=== PATIENT | female | born 1960 | race Caucasian/White ===

== ENCOUNTER 2016-08-06 11:02 | Observation (INO) | payer OTHER ==
[2016-07-25 13:50] VITALS: BMI 21.0
--- NOTE | 2016-07-25 14:19 | PAT Medication Instructions ---
Service Date Jul 25, 2016. Current Home Medication List Biotin (Biotin 5000), 2 CAP PO QPM Buspirone Hcl (Buspirone Hcl), 1 TAB PO Q2D Gabapentin (Neurontin), 300 MG PO TID Meloxicam (Meloxicam), 15 MG PO QAM Multivitamin (Multivitamin), 1 TAB PO DAILY Multivitamin (Multivitamin), 1 TAB PO QPM Sennosides-Docusate Sodium (Stool Softener), 1 TAB PO UD PRN for Constipation Tramadol (Ultram), 1 TAB PO TID PRN for Pain Tramadol (Ultram), 100 MG PO HS PRN for Pain Venlafaxine Hcl (Effexor), 37.5 MG PO QPM Medication Instructions For Your Scheduled Surgery - Check with surgeon for instructions: Meloxicam (Meloxicam), 15 MG PO QAM - Hold the following medications the morning of surgery: Sennosides-Docusate Sodium (Stool Softener), 1 TAB PO UD PRN for Constipation Multivitamin (Multivitamin), 1 TAB PO DAILY - Take the following medications the morning of surgery with a sip of water: Gabapentin (Neurontin), 300 MG PO TID Buspirone Hcl (Buspirone Hcl), 1 TAB PO Q2D Tramadol (Ultram), 1 TAB PO TID PRN for Pain (okay to take up to 4 hours prior to surgery if needed) - Take the following medications as scheduled the night before surgery: Venlafaxine Hcl (Effexor), 37.5 MG PO QPM Sennosides-Docusate Sodium (Stool Softener), 1 TAB PO UD PRN for Constipation Multivitamin (Multivitamin), 1 TAB PO QPM Gabapentin (Neurontin), 300 MG PO TID Biotin (Biotin 5000), 2 CAP PO QPM Tramadol (Ultram), 100 MG PO HS PRN for Pain If you have any questions please call us at [phone] (Marta Mcdaniel PA-C) or [phone] or [phone]
--- NOTE | 2016-07-25 14:59 | DIAGNOSTIC IMAGING REPORT ---
CHEST PREADMISSION(PA/LAT) CLINICAL HISTORY: Preoperative chest COMPARISON STUDY: No previous studies for comparison. FINDINGS: The cardiac and mediastinal contours are normal. There is no evidence of focal pulmonary consolidation. There is no evidence of failure. No pleural effusions are visualized.[ IMPRESSION: No active disease in the chest. Electronically signed by: Galen Ledesma M.D. 07/25/2016 2:57 PM Dictated Date/Time: 07/25/2016 2:57 PM
[2016-07-25 15:25] LABS: BASO % 0.4 %; BASO ABS # 0.02 K/uL (0-0.2); COMPLETE YES; EOS % 0.9 %; HEMATOCRIT 42.3 % (37-47); IG% 0.2 %; LYMPH % 40.5 %; LYMPH ABS # 2.22 K/uL (1.2-3.4); MEAN CELL VOLUME 96.6 fL (80-100); MEAN CORPUSCULAR HEMOGLOBIN 32.4 pg (25-34); MEAN CORPUSCULAR HGB CONC 33.6 g/dl (32-36); MEAN PLATELET VOLUME 9.7 fL (7.4-10.4); MONO % 6.9 %; NEUT % 51.1 %; PLATELET COUNT 260 K/uL (130-400); RED BLOOD COUNT 4.38 M/uL (4.2-5.4); WHITE BLOOD COUNT 5.48 K/uL (4.8-10.8)
[2016-07-25 15:36] LABS: URINE APPEARANCE CLEAR (CLEAR); URINE BILIRUBIN NEG (NEG); URINE COLOR YELLOW; URINE EPITHELIAL CELL AUTO 0-5 /lpf (0-5); URINE NITRITE NEG (NEG); URINE SPECIFIC GRAVITY 1.005 (1.000-1.030); UROBILINOGEN NEG (NEG)
[2016-07-25 15:37] LABS: PROTHROMBIN TIME (PATIENT) 10.3 SECONDS (9.0-12.0)
[2016-07-25 15:43] LABS: CALCIUM 9.6 mg/dl (8.5-10.1); CREATININE 0.75 mg/dl (0.60-1.20); POTASSIUM 4.5 mmol/L (3.5-5.1)
[2016-07-25 15:46] LABS: MANUAL MICROSCOPIC REQUIRED? NO; REVIEW REQ? NO
--- NOTE | 2016-08-03 13:55 | HISTORY & PHYSICAL EXAMINATION ---
DATE OF ADMISSION: Saturday surgery at [facility]. PROCEDURE: Lumbar spine discectomy L5-S1. HISTORY OF PRESENT ILLNESS: Julito is a delightful young lady. She has back and lower extremity difficulty, paresthesias, numbness and tingling. Straight leg raising. We failed to get her better with conservative measures. She has a posterior disc protrusion L5-S1 with impingement of the S1 nerve root on the right. She is here for surgical intervention. PAST MEDICAL HISTORY: Negative for heart disease, diabetes, carcinoma, asthma, wheezing, anemias. Positive for anxiety. PAST SURGICAL HISTORY: Tubal ligation, wisdom teeth. MEDICATIONS: Meloxicam, Neurontin, tramadol, multivitamin. ALLERGIES: Negative. SOCIAL HISTORY: Nonsmoker, non-ETOH user. MEDICATIONS: Include multivitamin, biotin, tramadol, meloxicam as stated and Prilosec. Also takes BuSpar. REVIEW OF SYSTEMS: She has no fever, sweats, chills. No feeling of malaise, it is all mechanical back and lower extremity difficulty. Denies any chest pain, palpitations. Denies asthma, wheezing, shortness of breath. Denies nausea, vomiting, urgency, frequency, dysuria. She admits to her back and lower extremity difficulty. OBJECTIVE: GENERAL: She is alert, oriented. She is petite. VITAL SIGNS: Blood pressure 130/80, pulse of 80, respiratory rate 16, temperature 97.4. HEENT: Pupils react to light and accommodation. Ear, nose and throat clear. CARDIAC: Normal S1, S2; no S3. LUNGS: Clear to auscultation. ABDOMEN: Soft and nontender. MUSCULOSKELETAL: She has pain with percussion of lumbar spine. Pain with straight leg raising. She has some numbness and tingling and decreased Achilles reflex. IMPRESSION: Disc herniation, lumbar spine L5-S1. DISPOSITION: Includes lumbar spine discectomy L5-S1.
[2016-08-06] VITALS (8 sets, daily range): BP systolic 130–160; BP diastolic 82–100; PULSE 59–80; TEMP 36.5–36.9; O2SAT 96–100; Ht 154.9 cm; Wt 51.6 kg
[~2016-08-06] VITALS: Ht 154.9 cm; Wt 51.6 kg
[~2016-08-06 11:02] MED LIST: BIOTCAP2 PO; BUSP-8 PO; CEFAZOLIN 2000 MG/60 ML D5W 60 ML IV SCH; EFF/375 PO; GABA-113 PO; LACTATED RINGER'S 500 ML IV SCH; MELO15TA4 PO; MULT-506 PO; SENNTAB23 PO; SODIUM CHLORIDE 0.9% 1000ML 1,000 ML IV SCH; TRAM-10 PO
[2016-08-06] MEDS ORDERED: FENTANYL CITRATE INJ 50 MCG/1 ML 2 ML VIAL ONE (13:42)
[2016-08-06] MEDS ORDERED: GLYCOPYRROLATE INJ 0.2 MG/ML VIAL ONE (13:42)
[2016-08-06] MEDS ORDERED: NEOSTIGMINE METHYLSULFATE 5 MG/5 ML SYR ONE (13:42)
[2016-08-06] MEDS ORDERED: LIDOCAINE HCL 2% 2 ML VIAL (20MG/ML) ONE (13:42)
[2016-08-06] MEDS ORDERED: SUCCINYLCHOLINE CHLORIDE 20 MG/ML 10 ML VIAL IV ONE (13:42)
[2016-08-06] MEDS ORDERED: DEXAMETHASONE SOD INJ 4 MG/ML VIAL ONE (13:42)
[2016-08-06] MEDS ORDERED: PHENYLEPHRINE HCL INJ 10 MG/ML VIAL ONE (13:42)
[2016-08-06] MEDS ORDERED: ROCURONIUM BROMIDE 10 MG/ML 5 ML VIAL ONE (13:42)
[2016-08-06] MEDS ORDERED: EpHEDrine SULFATE INJ 50 MG/ML AMP ONE (13:42)
[2016-08-06] MEDS ORDERED: ONDANSETRON INJ 2 MG/ML 2 ML VIAL ONE ×2 (13:42→15:29)
[2016-08-06] MEDS ORDERED: MIDAZOLAM HCL 1 MG/ML 2ML VIAL ONE (13:42)
[2016-08-06] MEDS ORDERED: PROPOFOL IV EMULSION 10 MG/ML 20 ML VIAL IV ONE (13:42)
[2016-08-06] MEDS ORDERED: ATROPINE SULFATE 0.1 MG/ML 5ML SYR IV PRN (14:00)
[2016-08-06] MEDS ORDERED: LABETALOL HCL IV 5 MG/ML 20ML IV PRN (14:00)
[2016-08-06] MEDS ORDERED: HYDROmorphone INJ 2 MG/ML SYR/VIAL IV PRN ×2 (14:00→16:15)
[2016-08-06] MEDS ORDERED: MEPERIDINE HCL 25 MG/ML CARP IV PRN (14:00)
[2016-08-06] MEDS ORDERED: EpHEDrine SULFATE INJ 50 MG/ML AMP IV PRN (14:00)
[2016-08-06] MEDS ORDERED: PHENYLEPHRINE 100MCG/ML 5ML SYR IV PRN (14:00)
[2016-08-06] MEDS ORDERED: FLUMAZENIL 0.1 MG/1 ML 10 ML VIAL IV PRN (14:00)
[2016-08-06] MEDS ORDERED: NALOXONE HCL 0.4 MG/1 ML VIAL/CARP IV PRN (14:00)
[2016-08-06] MEDS ORDERED: ONDANSETRON INJ 2 MG/ML 2 ML VIAL IV PRN ×2 (14:00→16:15)
--- NOTE | 2016-08-06 14:39 | History & Physical Bridge Note ---
H&P Re-Evaluation Bridge Note: I have examined the patient, reviewed the History & Physical and in the interval since the performance of the History & Physical I have noted the following changes of clinical significance: No changes noted
[2016-08-06] MEDS ORDERED: VANCOMYCIN HCL 1000MG/20ML VIAL TOP ONE (15:43)
[2016-08-06] MEDS ORDERED: THROMBIN FOR SOLN 20000 UNIT KIT TOP ONE (15:43)
[2016-08-06] MEDS ORDERED: GELATIN SPONGE SZ 100 TOP ONE (15:43)
[2016-08-06] MEDS ORDERED: BUPIVACAINE/EPINEPHRINE 0.5% MPF 1:200,000 30 ML VIAL INJ ONE (15:43)
[2016-08-06] MEDS ORDERED: BACITRACIN 50000 UNIT VIAL IR ONE (15:54)
[2016-08-06] MEDS ORDERED: SODIUM CHLORIDE 0.9% 1000ML 1,000 ML IV SCH (16:08)
--- NOTE | 2016-08-06 16:13 | [facility] Post Operative Brief Note ---
Immediate Operative Summary Operative Date Aug 06, 2016. Pre-Operative Diagnosis Disc herniation, lumbar spine L5-S1 Post-Operative Diagnosis Same as preop Procedure(s) Performed L5-S1 Discectomy Surgeon Dr. Galvan Shipyard Helper Surgeon(s) Rudolph Camarillo PA-C Estimated Blood Loss 20 ml Findings disc herniation Specimens None per Surgeon Complication(s) None Disposition Recovery Room / PACU
[2016-08-06] MEDS ORDERED: LORAZEPAM INJ 1 MG in SYRINGE 0 ML IV PRN (16:15)
[2016-08-06] MEDS ORDERED: ACETAMINOPHEN 325 MG TAB PO PRN (16:15)
[2016-08-06] MEDS ORDERED: MAGNESIUM HYDROXIDE SUSP 30 ML UDC PO PRN (16:15)
[2016-08-06] MEDS ORDERED: METOCLOPRAMIDE HCL INJ 5 MG/ML 2 ML VIAL IV PRN (16:15)
[2016-08-06] MEDS ORDERED: OXYCODONE/ACETAMINOPHEN 5-325 TAB PO PRN (16:15)
[2016-08-06] MEDS ORDERED: LORAZEPAM 1 MG TAB PO PRN (16:15)
[2016-08-06] MEDS ORDERED: HYDROmorphone INJ 1 MG/ML SYR IV PRN (16:15)
[2016-08-06] MEDS ORDERED: PROMETHAZINE HCL INJ 12.5 MG in SODIUM CHLORIDE 0.9% 50ML 50 ML IV PRN (16:15)
[2016-08-06] MEDS: FENTANYL CITRATE INJ 50 MCG/1 ML 2 ML VIAL IV PRN ×4 (16:23→16:40)
--- NOTE | 2016-08-06 16:54 | Anesthesiology Progress Note ---
Anesthesia Post Op Note Date & Time Aug 06, 2016 at 16:55 Vital Signs Pain Intensity: 3 Vital Signs Past 12 Hours Date Time Temp Pulse Resp B/P Pulse Ox O2 Delivery O2 Flow Rate FiO2 08/06/16 16:49 81 18 08/06/16 16:49 84 18 97 08/06/16 16:48 135/78 08/06/16 16:44 68 15 08/06/16 16:44 65 15 99 08/06/16 16:43 66 14 08/06/16 16:43 67 14 135/74 99 08/06/16 16:38 76 19 08/06/16 16:38 76 19 128/80 98 08/06/16 16:33 73 18 137/77 98 08/06/16 16:33 75 18 08/06/16 16:28 66 13 141/83 98 08/06/16 16:28 66 13 08/06/16 16:23 66 14 146/94 97 08/06/16 16:23 66 14 08/06/16 16:18 79 14 151/83 100 08/06/16 16:18 77 14 08/06/16 16:13 36.0 86 12 158/86 96 Mask 10 08/06/16 16:13 78 19 145/86 98 08/06/16 16:13 78 19 08/06/16 11:23 36.9 64 16 160/100 98 Room Air Notes Mental Status: alert / awake / arousable, participated in evaluation Pt Amnestic to Procedure: Yes Nausea / Vomiting: adequately controlled Pain: adequately controlled Airway Patency, RR, SpO2: stable & adequate BP & HR: stable & adequate Hydration State: stable & adequate Anesthetic Complications: no major complications apparent
--- NOTE | 2016-08-06 17:07 | DIAGNOSTIC IMAGING REPORT ---
Intraoperative lumbar spine single view CLINICAL HISTORY: L5-S1 DISCECTOMY COMPARISON STUDY: No previous studies for comparison. FINDINGS: 4 seconds of fluoroscopic time was utilized. A metallic density projected posterior elements at the S1 level. A single fluoroscopic spot image was acquired. IMPRESSION: Intraoperative localization spot image demonstrating a metallic needle projected over posterior elements at the S1 level Electronically signed by: Galen Ledesma M.D. 08/06/2016 5:05 PM Dictated Date/Time: 08/06/2016 5:04 PM
[2016-08-06] MEDS: OXYCODONE/ACETAMINOPHEN 5-325 TAB PO PRN ×2 (18:07→21:36)
[2016-08-06] MEDS: KETOROLAC TROMETHAMINE 30 MG/ML VIAL IV. SCH (18:51)
[2016-08-06] MEDS ORDERED: BIOTIN PO SCH (21:00)
[2016-08-06] MEDS ORDERED: VENLAFAXINE HCL 37.5 MG TAB PO SCH (21:00)
[2016-08-06] MEDS: DEXAMETHASONE INJ 10 MG in SYRINGE 0 ML IV SCH (21:34)
[2016-08-06] MEDS: GABAPENTIN 300 MG CAP PO SCH (21:34)
[2016-08-06] MEDS ORDERED: NURSING DECISION MEDICATION ORDER SCH (21:45)
[2016-08-06] MEDS ORDERED: COUGH DROP (SUGAR FREE) LOZ 24 LOZ/1 BOX ONE (21:47)
[2016-08-06] MEDS ORDERED: COUGH DROP (SUGAR FREE) LOZ 24 LOZ/1 BOX PO PRN (22:15)
[2016-08-06] MEDS: CEFAZOLIN IV 1,000 MG in DEXTROSE 5% 50ML 50 ML IV SCH (22:48)
[2016-08-06] MEDS ORDERED: IV FLUIDS COMPLETED PRN (23:45)
[2016-08-07] MEDS: KETOROLAC TROMETHAMINE 30 MG/ML VIAL IV. SCH ×3 (00:14→12:17)
[2016-08-07 02:37] VITALS: BP 120/71; PULSE 62; TEMP 36.6; O2SAT 98
[2016-08-07] MEDS: DEXAMETHASONE INJ 10 MG in SYRINGE 0 ML IV SCH (05:44)
[2016-08-07] MEDS ORDERED: BISACODYL 10 MG SUPP PR PRN (06:00)
[2016-08-07] MEDS ORDERED: BISACODYL 5 MG TABEC PO PRN (06:00)
[2016-08-07] MEDS: CEFAZOLIN IV 1,000 MG in DEXTROSE 5% 50ML 50 ML IV SCH (06:32)
[2016-08-07] MEDS ORDERED: NURSING DECISION MEDICATION ORDER SCH (06:45)
--- NOTE | 2016-08-07 07:08 | OPERATIVE REPORT ---
DATE OF OPERATION: 08/06/2016 PREOPERATIVE DIAGNOSIS: Disc herniation, lumbar spine. POSTOPERATIVE DIAGNOSIS: Same. PROCEDURE: Lumbar spine discectomy L4-L5. SURGEON: Ishan Galvan DO COMPUTING SYSTEMS MECHANIC: Rudolph Camarillo PA-C ESTIMATED BLOOD LOSS: 20 mL. COMPLICATIONS: Zero. DESCRIPTION OF PROCEDURE: The patient was taken to the operating room and general intubated anesthetic provided. The patient was placed prone, prepped and draped sterile. We used C-arm guidance, we came right down on the L5-S1 interspace, dissecting the soft tissue, the skin and the fascia. We did a mini laminotomy up and below, foraminotomy, took out a small piece of ligamentum flavum, retracted the dura and nerve root medial. Did a discectomy with various sized pituitary rongeurs, first incising this was 15 scalpel blade. We irrigated thoroughly, placed a small fat graft over the dural structures. Closed fascia to fascia over Hemovac drain with 1 Vicryl suture, 2-0 and 3-0 nylon on the skin. Sterile dressing applied. The patient returned to PACU stable. No apparent complications. I attest to the content of the Intraoperative Record and any orders documented therein. Any exceptio ns are noted below.
[2016-08-07 07:15] VITALS: BP 153/97; PULSE 57; TEMP 36.9; O2SAT 99
--- NOTE | 2016-08-07 07:37 | Discharge Instructions ---
Discharge Instructions Admission Reason for Admission: Lumbar Iv Disc Displacement Discharge Discharge Diagnosis / Problem: lumbar surgery Discharge Goals Goal(s): Improve function Activity Recommendations Activity Limitations: as noted below Lifting Limitations: until after follow-up appointment Exercise/Sports Limitations: until after follow-up appointment May Resume Sexual Activity: after follow-up appointment Shower/Bathe: keep incision dry Driving or Machine Use: home, rest, recover ! . Current Hospital Diet Patient's current hospital diet: Regular Diet Discharge Diet Recommended Diet: Regular Diet Fluid Restriction: None Procedures Procedures Performed: L5-S1 Discectomy Pending Studies Studies pending at discharge: no Medical Emergencies . Who to Call and When: Medical Emergencies: If at any time you feel your situation is an emergency, please call 911 immediately. . Non-Emergent Contact Non-Emergency issues call your: Surgeon Call Non-Emergent contact if: temperature is above 101.5, your pain is concerning you, wound has increased drainage . "Provider Documentation" section prepared by Ishan Galvan. VTE Core Measure Inpt VTE Proph given/why not?: Treatment not indicated
--- NOTE | 2016-08-07 08:08 | Anesthesiology Progress Note ---
Anesthesia Post Op Note Date & Time Aug 07, 2016 at 08:07 Vital Signs Vital Signs Past 12 Hours Date Time Temp Pulse Resp B/P Pulse Ox O2 Delivery O2 Flow Rate FiO2 08/07/16 07:15 36.9 57 16 153/97 99 Room Air 08/07/16 07:15 Room Air 08/07/16 02:37 36.6 62 18 120/71 98 Room Air 08/07/16 00:20 Room Air 08/06/16 23:34 36.8 61 18 133/83 97 Room Air 08/06/16 20:08 36.8 62 17 160/82 96 Room Air Notes Mental Status: alert / awake / arousable, participated in evaluation Pt Amnestic to Procedure: Yes Nausea / Vomiting: adequately controlled Pain: adequately controlled Airway Patency, RR, SpO2: stable & adequate BP & HR: stable & adequate Hydration State: stable & adequate Anesthetic Complications: no major complications apparent
--- NOTE | 2016-08-07 08:17 | PROGRESS NOTE ---
DATE: 08/07/2016 SUBJECTIVE: Moderate complaints of pain. No chest pain, shortness of breath. OBJECTIVE: Vital signs stable. 36.0 temperature. Laboratory work not indicated. ASSESSMENT: Status post discectomy lumbar spine. DISPOSITION: We will get her up and ambulatory today. Dressing change, pull her Hemovac drain. We will discharge her home later on today in improved stable condition. She has a follow-up appointment in 10 days. Careful with bending, stooping, lifting, no driving. She is to wear her back brace if comfortable when she is up and ambulatory. Essentially home rest and recover, call if any problems arise.
[2016-08-07] MEDS: GABAPENTIN 300 MG CAP PO SCH (08:40)
[2016-08-07] MEDS: OXYCODONE/ACETAMINOPHEN 5-325 TAB PO PRN (08:43)
[2016-08-07] MEDS ORDERED: POLYETHYLENE (MIRALAX) 17 GM PACK PO SCH (09:00)
[2016-08-07] MEDS ORDERED: MULTIVITAMIN TAB PO SCH (09:00)
[2016-08-07 11:15] VITALS: BP 147/93; PULSE 72; TEMP 37.1; O2SAT 98
[2016-08-07 12:23] VITALS: BP 147/93; PULSE 72; TEMP 37.1; O2SAT 98
--- NOTE | 2016-08-21 19:43 | DISCHARGE SUMMARY ---
SUBJECTIVE: Moderate complaints of pain. Minimal lower extremity difficulty. No fevers, sweats, chills. PHYSICAL EXAMINATION: Afebrile. Moves all extremities. Good bowel sounds. ASSESSMENT: Status post discectomy. DISPOSITION: Includes instructions, precautions. Follow up in the office in 2 weeks. Instructions given in the office and in the hospital. Back brace for support. Wound is to be kept clean and dry.
== END 2016-08-07 12:41 | disposition home or self-care (01) ==
LOC: ENRESERVDT → ENRESERVTM → C.ACU 11:02 → C.3E 16:12
PROVIDERS: ADMIT Orthopaedic Surgery Orthopaedic Surgery of the Spine; ATTEND Orthopaedic Surgery Orthopaedic Surgery of the Spine
DX: M51.27 Other intervertebral disc displacement, lumbosacral region (principal)